=== PATIENT | male | born 1960 | race Caucasian/White ===

== ENCOUNTER 2016-06-26 02:30 | Emergency (ER) | payer OTHER ==
[~2016-06-26 02:30] MED LIST: FLOMAX4 PO; LIPITOR40 PO; LUVOX100 PO; NITROSTAT0.4 MG SL; PERCOCET1 TA4 PO; PLAVIX PO; RISP0.5 PO; TRAZODONE150 MG PO; XANAX1 MG PO; Z300 PO
== END 2016-06-26 02:55 | disposition home or self-care (01) ==
LOC: ER 02:30
PROC: 2W3CX1Z Immobilization of Right Lower Arm using Splint (ICD-10-PCS; principal; 2016-06-26)
DX: S52.502A Unspecified fracture of the lower end of left radius, initial encounter for closed fracture (principal); Z79.899 Other long term (current) drug therapy; W19.XXXA Unspecified fall, initial encounter
CPT/HCPCS: 73090-LT; 73110-LT; 90471; 90714; 99284